=== PATIENT | male | born 1950 | race Caucasian/White ===

== ENCOUNTER 2023-07-31 09:30 | Outpatient (RCR) | payer MEDICARE, BC, SELFPAY ==
--- NOTE | 2023-07-15 14:39 | HP.PTEVAL ---
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 Date of Evaluation: 07/15/23 Physical Therapist: Rosalina Cueto, PT, Cert MDT Visit Plan Frequency: 2x /Week Duration: 4-6 Weeks Plan: MANUAL THERAPY FOR EFRA HIP/THIGH STM AND ROM. THER EX AND THER ACT FOR EFRA LE ROM, STRETCHING AND STRENGTHENING. GAIT TRAINING TO NORMALIZE GAIT ON LEVEL SURFACES AND UP AND DOWN STEPS. CORE AND POSTURAL STRENGTHENING. HEP INSTRUCTION. CONSIDER AQUATIC THERAPY PER PHYSICIAN ORDER. Subjective Subjective: Work/Leisure: RETIRED. LIKES TO PLAY GOLF ONCE IN AWHILE AND LIKES TO DO GARDENING AND LANDSCAPING. Present symptoms: INTERMITTENT LOW BACK PAIN. L ANTERIOR AND LATERAL HIP PAIN. L PROX ANTEROLATERAL THIGH BURNING. R ANTERIOR AND LATERAL HIP PAIN. RIGHT THIGH BURNING. EFRA THIGH NUMBNESS R>L. OTHERWISE DENIES EFRA LE NUMNESS AND TINGLING. LEGS CAN GET CRAMPY - R>L. Present since: ABOUT 1.5 TO 2 YEARS Pain Scale: R: WORST 7/10, LEAST 1/10. L: WORST 5/10, LEAST 0/10. Currently: R: 1/10. L: 0/10 Is it getting better, worse or staying the same: GETTING BETTER Worse: COLD, SQUATTING, PICKING UP MY LEGS TO GET THEM INTO BED R>L. Better: SITTING, STANDING IF NOT TOO LONG Disturbed sleep: NO Previous history/Previous treatment: ELASTIC HIP BRACE - EFRA - ONE HIP AT A TIME. Treatment this episode: HOME PT X ABOUT 2 WEEKS PO FOR EACH HIP THEN OUT-PATIENT PHYSICAL THERAPY AT [facility] LEFT HIP X ABOUT 2 MONTHS. NO OUT PT PT FOR R HIP YET. L THR 12/16/22. R THR 06/02/23. PATIENT DENIES ANY COMPLICATIONS WITH EITHER SX. Gait: WALKER FOR ABOUT 3 DAYS THEN CANE FOR ABOUT 3 DAYS AFTER R THR. LIVES IN 2 STORY HOME AND GOING UP AND DOWN STEPS WITH 1 HR RECIPROCALLY. Bowel or Bladder Dysfunction: NO Accidents: NONE RECENT. NO FALLS. Unexplained weight loss: NO Imaging: R HIP IMAGING PENDING TOMORROW AT SURGICAL RE-CHECK. PMH/Recent major surgery: EFRA TKR'S. R JAW SX. RLS. Objective Objective: THIS PATIENT AMBULATES INDEP'LY INTO PT WITHOUT ANY AD'S OR LOB WITH DECREASED EFRA STRIDE LENGTH AND DECREASED WT. BEARING TIME ON R LE COMPARED TO LEFT. HE IS ABLE TO TRANSFER FROM SIT TO STAND WITHOUT UE ASSIST AND REVERSE BUT HE IS UNABLE TO RAISE HIS R KNEE IN SITTING AND TRANSFER HIS R LE ONTO THE TREATMENT TABLE INDEP'LY DURING SIT TO SUPINE TRANSFER INDEP'LY WITHOUT UE ASSIST. HE REPORTS THIS HAS BEEN A PROBLEM AT HOME AND TRYING TO GET HIS LEG IN BED CAUSES R HIP PAIN. Sitting/Standing Posture: FAIR WITH REDUCED LUMBAR LORDOSIS BUT NO RELEVANT LATERAL SHIFT. Active Correction of posture: BETTER - REDUCES LBP. ABLE TO PARTIALLY CORRECT BUT DOES NOT MAINTAIN. Sensory deficit: DECREASED EFRA ANTERIOR HIP, LATERAL HIP AND PROX ANT THIGH LIGHT TOUCH SENSATION R > LEFT. ROM deficit: EFRA HIP TIGHTNESS ALL PLANES R>L. EFRA HS AND CALF TIGHTNESS. Motor deficit: L LE: HIP 4/5, KNEE 5/5, ANKLE 5/5. R LE: HIP 2+/5, KNEE 4/5, ANKLE 4/5 Lumbar mvmt loss: flex - MIN ext - MOD TO FRANCO R SG - MOD L SG - FRANCO PATIENT C/O MILD LB ACHE AND TIGHTNESS. Core strength: FAIR Palpation: PATIENT HAS GOOD L SURGICAL SCAR MOBILITY BUT MULTIPLE TRIGGER POINTS IN HIP AND THIGH MUSCULATURE. EFRA INCISIONS LOOK WELL HEALED WITHOUT ANY OPEN AREAS OR SIGNS OF INFECTIONS. R SURGICAL INCISION HAS HYPOMOBILITY AND HIP AND THIGH MUSCULATURE HAS TIGHTNESS AND MULTIPLE TRIGGER POINTS. OTHER: SEE TUG TIME AND STS TEST RESULTS BELOW. Balance/Special Test Scores Lower Extremity Functional Score: 36 TUG Test Time Seconds: 14.38 30 Second Chair Rise Test Seconds: 6 Goals Goal 1:: PATIENT WILL HAVE INCREASED EFRA LE FLEXIBILITY TO ASSIST WITH NORMALIZING GAIT FUNCTION. Goal Time Frame: 6-8 Weeks Goal 2:: PATIENT WILL HAVE INCREASED BLE STRENGTH TO 5/5 THROUGHT ALLOWING FOR INCREASED STABILITY WITH ALL GAIT ACTIVITIES. Goal Time Frame: 8-12 Weeks Goal 3:: PATIENT WILL COMPLETE 10 STANDS IN 30 SECS TO DEMONSTRATE IMPROVED FUNCTIONAL STRENGTH Goal Time Frame: 4-6 Weeks Goal 4:: PATIENT WILL COMPLETE TUG IN < 10 SECS WITHOUT AD TO DEMONSTRATE IMPROVED GAIT STABILITY Goal Time Frame: 4-6 Weeks Goal 5:: PATIENT WILL HAVE AT LEAST 10 POINT IMPROVMENT IN LEFS SCORE TO SHOW FUNCTIONAL IMPROVMENT. Goal Time Frame: 8-12 Weeks Goal 6:: PATIENT WILL BE INDEP WITH A HEP FOR CONTINUED IMPROVEMENT ONCE FORMAL PHYSICAL THERAPY CONCLUDES. Goal Time Frame: 8-12 Weeks Rehabilitation Potential Physical Therapy Diagnosis: THIS PATIENT PRESENTS TO PT S/P FERA THR'S WITH GAIT DEVIATIONS, EFRA LE TIGHTNESS AND EFRA LE WEAKNESS R > L. Rehabilitation Potential: Good Anticipated Interventions Patient/Client Instruction: Educate patient on: Condition, Plan of Care and Risk Factors For the Purpose of:: To improve self management Therapeutic Exercise to Include: Strength training, Body mechanics, Postural training, Flexibilty training, Gait and locomotor training, Neuromotor development, In an aquatic setting and Dynamic Lumbar Stabilization Comment: CONSIDER AQUATIC THERAPY ONCE WOUNDS FULLY SEALED. For the Purpose of:: To decrease pain, To increase ROM, To improve nutrient delivery to tissue, To improve muscle performance and motor function, To increase tolerance to activity/condition/position, To improve performance and independence with ADL's, To improve ability of physical actions for home/community/work/leisure, To improve gait and locomotor functions and To increase flexibility/ROM Manual Therapy Techniques to Include: Trigger point massage and Soft tissue mobilization For the Purpose of:: To decrease pain, To increase ROM, To improve nutrient delivery to tissue and To improve muscle performance and motor function Cryotherapy (ice pack, ice massage): Yes For the Purpose of:: To decrease pain and To decrease swelling/inflammation Text: Thank you for the opportunity to evaluate your patient. For Medicare and Medicare HMO plans, please review the plan of care and approve it. It will need to be FAXED BACK to us at [phone] for Medicare purposes. For Medicare only, by signing this I certify the plan of care. Please let me know if there are questions or concerns regarding this plan of care. Physician Signature: Date:
--- NOTE | 2023-08-03 15:29 | HP.PTDCSUM ---
Discharge Summary D/C summary: It has been my pleasure to treat KIRAN BIRD referred by LETI HECK, with the diagnosis of S/P R THR 06/02/23 AND S/P L THR 12/16/22 for a total of 6 visit(s). Discharge Date: 08/03/23 Please see the following information for a summary of their discharge status. Subjective Subjective: PATIENT REPORTS HE IS DOING A LOT BETTER. STATES HE STILL FEELS SOME WEAKNESS IN THE R HIP THOUGH. I KNOW HISTORICALLY WHAT IT'S GOING TO DO NOW SO I CAN JUST KEEP DOING WHAT I'M DOING AT HOME NOW. HE REPORTS HE ISN'T HAVING ANY PROBLEMS - CAN DO STEPS, CAN DRIVE AND DO WHAT HE NEEDS TO DO - I'M GOOD. REPORTS HE ISN'T HAVING MUCH PAIN AT ALL WITH L HIP RANGING 0-1/10 AND R HIP 0-2/10. Pain L hip: Pain Intensity (Out of 10): 3 Overall Improvement % Improvement: 70 Objective Objective/Function: PATIENT WAS SEEN TODAY FOR RE-ASSESSMENT OF PROGRESS TOWARD THE SET PT GOALS AND THE NEED FOR FURTHER PHYSICAL THERAPY VS READINESS FOR DISCHARGE. UPON EXAM TODAY: THIS PATIENT AMBULATES INDEP'LY INTO PT TODAY WITHOUT ANY AD'S OR LOB. HE IS ABLE TO COMPLETE 10 INDEP SLR'S ON THE R LE BUT ODD'LY ENOUGH HE IS ONLY ABLE TO LIFT HIS R KNEE AN INCH OR TWO INTO FLEXION IN SITTING HOWEVER HE CAN ABD AND ADD HIS R LEG WELL IN SITTING, LYING AND STANDING. HE REPORTS THIS HAPPENED AT THIS POINT IN REHAB WITH HIS L HIP TOO AND THEN ALL OF A SUDDEN HE COULD LEFT THE L KNEE IN SITTING FINE AND DEMO'S GOOD L HIP FLEXION IN SITTING FOR ME NOW. Goals Goal 1:: PATIENT WILL HAVE INCREASED EFRA LE FLEXIBILITY TO ASSIST WITH NORMALIZING GAIT FUNCTION. Goal Progress: Goal Met Goal 2:: PATIENT WILL HAVE INCREASED BLE STRENGTH TO 5/5 THROUGHT ALLOWING FOR INCREASED STABILITY WITH ALL GAIT ACTIVITIES. Goal Progress: Progressing Goal 3:: PATIENT WILL COMPLETE 10 STANDS IN 30 SECS TO DEMONSTRATE IMPROVED FUNCTIONAL STRENGTH Goal Progress: Goal Met Goal 4:: PATIENT WILL COMPLETE TUG IN < 10 SECS WITHOUT AD TO DEMONSTRATE IMPROVED GAIT STABILITY Goal Progress: Goal Met Goal 5:: PATIENT WILL HAVE AT LEAST 10 POINT IMPROVMENT IN LEFS SCORE TO SHOW FUNCTIONAL IMPROVMENT. Goal Progress: Goal Met Goal 6:: PATIENT WILL BE INDEP WITH A HEP FOR CONTINUED IMPROVEMENT ONCE FORMAL PHYSICAL THERAPY CONCLUDES. Goal Progress: Goal Met Plan Plan: D/C TO HEP AT PATIENTS REQUEST D/C Information d/c sentence: If there are questions or concerns regarding this patient's physical therapy, please feel free to call me at [phone]. Thank you for the referral of this patient. Sincerely, Rosalina Cueto, PT, Cert MDT Balance/Gait/Functional tests Balance/Special Test Scores Lower Extremity Functional Score: 63 TUG Test Time Seconds: 8.51 Tug Test: <10 sec.=free mobile 30 Second Chair Rise Test Seconds: 12 Improvement % Improvement: 70
== END 2023-07-31 19:00 | disposition home or self-care (01) ==
LOC: PT 09:30
DX: Z96.642 Presence of left artificial hip joint (principal); M16.11 Unilateral primary osteoarthritis, right hip
CPT/HCPCS: 97110; 97116; 97140; 97162